=== PATIENT | female | born 1975 ===

== ENCOUNTER 2017-11-18 21:38 | Emergency (ER) | payer MEDICAID ==
--- NOTE | 2017-11-18 22:24 | ED PDOC ---
HPI: CCC, URI, Sore Throat Time Seen by Provider: 11/18/17 22:03 Chief Complaint (Nursing): Shortness Of Breath Chief Complaint (Provider): Dry Cough History Per: Patient History/Exam Limitations: no limitations Onset/Duration Of Symptoms: Days (2 weeks), Intermittent Episodes Additional Complaint(s): Leola Richter, a 42 year old female presents to the Emergency Department complaining of dry cough onset two weeks ago. Reports it is intermittent. Patient has a history of thyroid and toxic goiter and reports she needs a treatment but denies obtaining medical attention. Patient reports of increased heart rate. Also denies difficulty breathing, fever, chest pain, leg swelling, or palpations. Does not have any medical or surgical history. PMD: No Provider Past Medical History Reviewed: Historical Data, Nursing Documentation, Vital Signs Vital Signs: Last Vital Signs Temp 98.1 F 11/18/17 21:52 Pulse 73 11/18/17 21:52 Resp 16 11/18/17 21:52 BP 124/83 11/18/17 21:52 Pulse Ox 100 11/18/17 22:24 - Medical History PMH: Anxiety, Asthma, Bipolar Disorder, COPD, Depression (All my life as per patient I have depression), Rheumatoid Arthritis, Chronic Pain (back) Denies: Diabetes, Hepatitis, HIV, HTN, Chronic Kidney Disease, Seizures, Sexually Transmitted Disease - Surgical History Surgical History: (x 1) - Family History Family History: States: Unknown Family Hx - Social History Current smoker - smoking cessation education provided: Yes Alcohol: Social Drugs: Denies - Home Medications Home Medications: Ambulatory Orders Medication Instructions Recorded Albuterol HFA [Ventolin HFA 90 1 puff INH PRN PRN 01/06/17 mcg/actuation (8 g)] - Allergies Allergies/Adverse Reactions: Allergies Allergy/AdvReac Type Severity Reaction Status Date / Time No Known Allergies Allergy Verified 11/18/17 21:51 Review of Systems ROS Statement: Except As Marked, All Systems Reviewed And Found Negative Constitutional: Negative for: Fever, Chills Cardiovascular: Negative for: Chest Pain, Palpitations Respiratory: Negative for: Shortness of Breath Musculoskeletal: Positive for: Other (no leg swelling) Physical Exam - Reviewed Nursing Documentation Reviewed: Yes Vital Signs Reviewed: Yes - Physical Exam Neurologic/Psych: Positive for: Alert, Oriented - ECG O2 Sat by Pulse Oximetry: 100 Disposition - Disposition Forms: [facility] ([place])
[2017-11-18] MEDS ORDERED: Albuterol-Ipratrop 3 mg / 0.5 (3 ml) UD INH STA (22:40)
[2017-11-18] MEDS ORDERED: Promethazine/Cod 6.25mg-10mg/5ml Syr UD PO STA (22:42)
[2017-11-18 22:59] VITALS: BMI 21.4
[2017-11-18 23:00] VITALS: RESP 16; TEMP 98.1
[2017-11-18 23:12] LABS: BASO # 0.1 K/uL (0.0-0.2); BASO % 1.4 % (0.0-2.0); EOS # 0.2 K/uL (0.0-0.7); EOS % 3.5 % (0.0-4.0); HEMOGLOBIN 11.9 g/dL (12.0-16.0); LYMPH % 32.5 % (20.0-40.0); MEAN CELL VOLUME 86.8 fl (81.0-99.0); MEAN CORPUSCULAR HEMOGLOBIN 29.2 pg (27.0-31.0); MEAN CORPUSCULAR HGB CONC 33.7 g/dL (33.0-37.0); MEAN PLATELET VOLUME 9.8 fl (7.2-11.7); MONO # 0.5 K/uL (0.0-0.8); MONO % 8.5 % (0.0-10.0); NEUT # 3.4 K/uL (1.8-7.0); NEUT % 54.1 % (50.0-75.0); RBC 4.05 Mil/uL (3.80-5.20); RED CELL DISTRIBUTION WIDTH 12.9 % (11.5-14.5); WHITE BLOOD COUNT 6.3 K/uL (4.8-10.8)
--- NOTE | 2017-11-18 23:16 | ED PDOC ---
HPI: CCC, URI, Sore Throat Time Seen by Provider: 11/18/17 22:03 Chief Complaint (Nursing): Shortness Of Breath Chief Complaint (Provider): Cough History Per: Patient History/Exam Limitations: no limitations Onset/Duration Of Symptoms: Days (x 1 week) Current Symptoms Are (Timing): Still Present Additional Complaint(s): Leana Richter is a 42-year-old female who presents to the emergency department complaining of a cough for 1 week. States cough is dry, and today she noticed wheezing and became short of breath. Patient also complaining of upper back pain when coughing. Denies any fevers, chills, or chest pain. Taking nebulizer treatments, albuterol inhaler, and course of z-pack obtained from her mother, however cough is persistent. Patient also had 1 episode of nose bleed today, which she attributes to her apartment being dry, and this resolved hours ago. PMD: None Past Medical History Reviewed: Historical Data, Nursing Documentation, Vital Signs Vital Signs: Last Vital Signs Temp 98.1 F 11/18/17 21:52 Pulse 73 11/18/17 21:52 Resp 16 11/18/17 21:52 BP 124/83 11/18/17 21:52 Pulse Ox 100 11/19/17 01:27 - Medical History PMH: Anxiety, Asthma, Bipolar Disorder, COPD, Depression (All my life as per patient I have depression), Rheumatoid Arthritis, Chronic Pain (back) Denies: Diabetes, Hepatitis, HIV, HTN, Chronic Kidney Disease, Seizures, Sexually Transmitted Disease - Surgical History Surgical History: (x 1) - Family History Family History: States: Unknown Family Hx - Social History Current smoker - smoking cessation education provided: No Ex-Smoker (has not smoked in the last 12 months): Yes (Quit 1 month ago) Alcohol: None - Home Medications Home Medications: Ambulatory Orders Medication Instructions Recorded Albuterol HFA [Ventolin HFA 90 1 puff INH PRN PRN #1 inhaler 11/19/17 mcg/actuation (8 g)] Prednisone 50 mg PO DAILY #30 tablet 11/19/17 Promethazine/Codeine 5 ml PO Q6 PRN #100 ml 11/19/17 [Phenergan/Codeine Oral Syrup] - Allergies Allergies/Adverse Reactions: Allergies Allergy/AdvReac Type Severity Reaction Status Date / Time No Known Allergies Allergy Verified 11/18/17 21:51 Review of Systems ROS Statement: Except As Marked, All Systems Reviewed And Found Negative Constitutional: Negative for: Fever, Chills ENT: Positive for: Other (nose bleed, now resolved) Cardiovascular: Negative for: Chest Pain Respiratory: Positive for: Cough, Shortness of Breath, Wheezing. Negative for: Sputum Physical Exam - Reviewed Nursing Documentation Reviewed: Yes Vital Signs Reviewed: Yes - Physical Exam Appears: Positive for: Non-toxic, No Acute Distress Head Exam: Positive for: ATRAUMATIC, NORMAL INSPECTION, NORMOCEPHALIC Skin: Positive for: Normal Color, Warm, Dry Eye Exam: Positive for: EOMI, Normal appearance, PERRL ENT: Positive for: Normal ENT Inspection Neck: Positive for: Normal, Painless ROM Cardiovascular/Chest: Positive for: Regular Rate, Rhythm. Negative for: Murmur Respiratory: Positive for: Normal Breath Sounds. Negative for: Accessory Muscle Use, Rhonchi, Wheezing, Respiratory Distress Gastrointestinal/Abdominal: Positive for: Normal Exam, Soft. Negative for: Tenderness Back: Positive for: Normal Inspection. Negative for: L CVA Tenderness, R CVA Tenderness, Vertebral Tenderness Extremity: Positive for: Normal ROM, Capillary Refill (< 2 sec). Negative for: Pedal Edema, Deformity Neurologic/Psych: Positive for: Alert, Oriented (x3) - Laboratory Results Result Diagrams: 11/18/17 23:08 11/18/17 23:08 - ECG O2 Sat by Pulse Oximetry: 100 (RA) Pulse Ox Interpretation: Normal Medical Decision Making Medical Decision Making: Initial Impression: Cough Differentials include: Acute bronchitis vs. COPD exacerbation, rule out pneumonia Time: Initial Plan: --EKG --BMP --CBC w/ differential --D dimer --Chest X-Ray --Duoneb 3 ml INH --Phenergan/Codeine 5 ml PO --Prednisone 60 mg PO --Reevaluation [address] angio PE ordered. CTA Chest: FINDINGS: Pulmonary arteries: There is no evidence of peripheral filling defects within the pulmonary arterial circulation to suggest pulmonary embolism. The pulmonary arteries are not enlarged. Aorta: The aorta is normal. No thoracic aortic aneurysm. Lungs: There is subpleural atelectasis of the dependent portions of the lungs. No mass. Pleural space: Normal. No significant effusion. No pneumothorax. Heart: The cardiac structures are normal. No significant pericardial effusion. No evidence of RV dysfunction. Mediastinum: The trachea is normal. Bones/joints: No acute fracture. No dislocation. Soft tissues: There are bilateral intact breast implants. Lymph nodes: Normal. No enlarged lymph nodes. IMPRESSION: There is no CT evidence of acute pulmonary embolism. Thank you for allowing us to participate in the care of your patient. Dictated and Authenticated by: Rony Coto MD 11/19/2017 12:53 AM Eastern Time ([place] & [place]) Patient is medically stable for discharge home. Scribe Attestation: Documented by Lizette Garg, acting as a scribe for Trena Mao MD Provider Scribe Attestation: All medical record entries made by the Scribe were at my direction and personally dictated by me. I have reviewed the chart and agree that the record accurately reflects my personal performance of the history, physical exam, medical decision making, and the department course for this patient. I have also personally directed, reviewed, and agree with the discharge instructions and disposition. Disposition - Clinical Impression Clinical Impression: Acute bronchitis - Patient ED Disposition Is Patient to be Admitted: No Doctor Will See Patient In The: Office Counseled Patient/Family Regarding: Studies Performed, Diagnosis, Need For Followup - Disposition Referrals: [facility] [Outside] Disposition: Routine/Home Disposition Time: 01:25 Condition: STABLE Additional Instructions: Take your medications as instructed. Follow up with your PCP in 2-3 days. Prescriptions: Albuterol HFA [Ventolin HFA 90 mcg/actuation (8 g)] 1 puff INH PRN PRN #1 inhaler PRN Reason: Cough And Congestion Prednisone 50 mg PO DAILY #30 tablet Promethazine/Codeine [Phenergan/Codeine Oral Syrup] 5 ml PO Q6 PRN #100 ml PRN Reason: Cough Instructions: Acute Bronchitis (ED)
[2017-11-18 23:23] LABS: BLOOD UREA NITROGEN 14 mg/dl (7-17); CALCIUM 10.3 mg/dL (8.4-10.2); GFR AFRICAN-AMERICAN > 60; GFR NON-AFRICAN AMERICAN > 60
[2017-11-18] MEDS ORDERED: Iodixanol 320 MG/ML 100 ML BOTTLE IV ONE (23:52)
[2017-11-18] MEDS ORDERED: Sodium Chloride 0.9% 50 ML IV ONE (23:53)
[2017-11-19 01:36] VITALS: BP 140/87; PULSE 85; O2SAT 99
--- NOTE | 2017-11-19 10:10 | CT ---
PROCEDURE: CT Chest with contrast (Pulmonary Angiogram) HISTORY: chest pain COMPARISON: None available. TECHNIQUE: Axial computed tomography images were obtained of the chest in the pulmonary arterial phase of enhancement. Coronal and sagittal reformatted images were created and reviewed. Intravenous contrast dose: 90 mL Visipaque 320 Radiation dose: Total exam DLP = 221.9 mGy-cm. This CT exam was performed using one or more of the following dose reduction techniques: Automated exposure control, adjustment of the mA and/or kV according to patient size, and/or use of iterative reconstruction technique. FINDINGS: PULMONARY ARTERIES: Unremarkable. No pulmonary embolism. AORTA: No acute findings. No thoracic aortic aneurysm. LUNGS: Unremarkable. No nodule, mass or pulmonary consolidation. PLEURAL SPACES: Unremarkable. No effusion or pneuomothorax. HEART: Unremarkable. No cardiomegaly. No significant pericardial effusion. LYMPH NODES: No lymphadenopathy. BONES, CHEST WALL: Unremarkable. No fracture or destructive lesion OTHER FINDINGS: Unremarkable. IMPRESSION: Unremarkable CT pulmonary angiogram. No pulmonary embolus.
--- NOTE | 2017-11-19 11:40 | RAD ---
HISTORY: dyspnea COMPARISON: Chest radiograph dated 01/06/2017. TECHNIQUE: Chest PA and lateral FINDINGS: LUNGS: No active pulmonary disease. PLEURA: No significant pleural effusion identified. No pneumothorax apparent. CARDIOVASCULAR: Normal. OSSEOUS STRUCTURES: No significant abnormalities. VISUALIZED UPPER ABDOMEN: Normal. OTHER FINDINGS: Bilateral breast prostheses redemonstrated. IMPRESSION: No active disease.
--- NOTE | 2017-11-19 17:56 | CARD ---
APPROVED REPORT EKG Measurement Heart [id number] <Conclusion> Sinus rhythm with short ND Otherwise normal ECG
== END 2017-11-19 01:38 | disposition home or self-care (01) ==
LOC: H.ER 21:38
DX: J20.9 Acute bronchitis, unspecified (principal); R04.0 Epistaxis
CPT/HCPCS: 71046; 71275; 80048; 81025; 85025; 85378; 93005; 99283; Q9967